=== PATIENT | female | born 1965 | race Caucasian/White ===

== ENCOUNTER 2021-07-19 00:15 | Inpatient (IN) | payer BC, OTHER ==
[~2021-07-19] VITALS: Ht 167.6 cm; Wt 87.7 kg
[2021-07-19] MEDS ORDERED: HYDROcodone/acetaminophen 10/325mg tab PO PRN (23:50)
[2021-07-19] MEDS ORDERED: HYDROmorphone inj. 0.5 MG/0.5 ML DISP.SYRIN IV PRN (23:50)
[2021-07-20 00:07] VITALS: BP 143/93
[2021-07-20] MEDS ORDERED: NO HOME MEDS (00:19)
[2021-07-20] MEDS: sodium chloride 0.45% 1,000 ML IV SCH ×3 (01:00→19:50)
[2021-07-20] MEDS ORDERED: vancomycin/NS 1 GM ADD-VANTAGE 250 ML IV SCH (01:00)
[2021-07-20] MEDS ORDERED: vancomycin/NS 1 GM ADD-VANTAGE 250 ML IV ONE (01:30)
[2021-07-20] MEDS: HYDROmorphone 1 mg/ml syringe IV PRN ×2 (01:30→23:08)
[2021-07-20] MEDS: CLINDAMYCIN/D5W 900mg/50ml 50 ML IV SCH ×3 (01:38→16:19)
[2021-07-20] MEDS: HYDROcodone/acetaminophen 10/325mg tab PO PRN ×2 (05:38→09:52)
--- NOTE | 2021-07-20 06:21 | NUR ---
Problems reprioritized. Patient report given, questions answered & plan of care reviewed with ISAIAS Mosher.
[2021-07-20 06:54] LABS: ALANINE AMINOTRANSFERASE 31 U/L (12-78); ALBUMIN 3.2 G/DL (3.4-5.0); ALBUMIN/GLOBULIN RATIO 0.9 (1.1-1.5); ALKALINE PHOSPHATASE 104 IU/L (46-116); ANION GAP 9 (8-16); ASPARTATE AMINO TRANSFERASE 18 U/L (10-37); BILIRUBIN,TOTAL 0.4 MG/DL (0.1-1.0); BLOOD UREA NITROGEN 16 MG/DL (7-18); BUN/CREATININE RATIO 18.4 (6.6-38.0); CALCIUM 8.6 MG/DL (8.5-10.1); CHLORIDE 103 MMOL/L (99-107); CREATININE 0.87 MG/DL (0.40-0.90); GLUCOSE 141 MG/DL (70-104); POTASSIUM 4.4 MMOL/L (3.5-5.1); SODIUM 137 MMOL/L (135-145); TOTAL CARBON DIOXIDE 25.4 MMOL/L (24-32); TOTAL PROTEIN 6.6 G/DL (6.4-8.2); eGFR 68 ML/MIN
[2021-07-20 07:24] VITALS: BP 131/78
[2021-07-20] MEDS: docusate sod 100mg capsule PO SCH ×2 (08:38→20:34)
[2021-07-20 11:00] VITALS: BP 125/74
[2021-07-20] MEDS: vancomycin/NS 1 GM ADD-VANTAGE 250 ML IV SCH (13:22)
--- NOTE | 2021-07-20 13:30 | NUR ---
Noted pt admitted for wound dehiscence s/p L knee replacement though limited information in EMR; pending physician documentation. Will reassess at later time for possible nutrition interventions. Addendum: 07/20/21 at [address] Amended: Links added.
--- NOTE | 2021-07-20 18:51 | NUR ---
gAVE REPORT TO RAQUEL ESPARZA
[2021-07-20 20:00] VITALS: BP 133/81
[2021-07-20] MEDS: lactobacillus rhamnosus 10,000 MMU CELLS/CAPSULE PO SCH (20:34)
[2021-07-21] VITALS: BP 128/83
[2021-07-21] MEDS: CLINDAMYCIN/D5W 900mg/50ml 50 ML IV SCH ×4 (00:44→23:35)
[2021-07-21] MEDS: vancomycin/NS 1 GM ADD-VANTAGE 250 ML IV SCH ×2 (00:56→13:51)
[2021-07-21] MEDS: sodium chloride 0.45% 1,000 ML IV SCH ×2 (05:50→16:33)
[2021-07-21 06:08] LABS: BASOPHILS # (AUTO) 0.1 X10'3 (0-0.2); BASOPHILS % (AUTO) 0.7 % (0-1); EOSINOPHILS # (AUTO) 0.3 X10'3 (0-0.9); EOSINOPHILS % (AUTO) 2.9 % (0-6); HEMATOCRIT 33.1 % (35.0-45.0); HEMOGLOBIN 11.3 g/dl (12.0-16.0); LYMPHOCYTES # (AUTO) 1.6 X10'3 (1.1-4.8); LYMPHOCYTES % (AUTO) 17.8 % (21-51); MEAN CORPUSCULAR HGB CONC 34.1 g/dL (33.0-36.5); MEAN PLATELET VOLUME 7.2 FL (7.4-10.4); MONOCYTES # (AUTO) 0.5 X10'3 (0-0.9); MONOCYTES % (AUTO) 5.9 % (2-12); NEUTROPHILS # (AUTO) 6.6 X10'3 (1.8-7.7); NEUTROPHILS % (AUTO) 72.7 % (42-75); PLATELET COUNT 288 X10'3 (140-440); RED CELL DISTRIBUTION WIDTH 13.1 % (11.5-14.5)
--- NOTE | 2021-07-21 06:23 | NUR ---
Patient in room [facility]. I have received report from Tamika chavez and had the opportunity to ask questions and assume patient care.
[2021-07-21 06:24] LABS: ALANINE AMINOTRANSFERASE 23 U/L (12-78); ALBUMIN 2.6 G/DL (3.4-5.0); ALBUMIN/GLOBULIN RATIO 0.9 (1.1-1.5); ALKALINE PHOSPHATASE 88 IU/L (46-116); ANION GAP 8 (8-16); ASPARTATE AMINO TRANSFERASE 15 U/L (10-37); BILIRUBIN,TOTAL 0.3 MG/DL (0.1-1.0); BLOOD UREA NITROGEN 17 MG/DL (7-18); BUN/CREATININE RATIO 20.7 (6.6-38.0); CHLORIDE 106 MMOL/L (99-107); CREATININE 0.82 MG/DL (0.40-0.90); GLUCOSE 110 MG/DL (70-104); POTASSIUM 4.2 MMOL/L (3.5-5.1); SODIUM 142 MMOL/L (135-145); TOTAL CARBON DIOXIDE 28.2 MMOL/L (24-32); TOTAL PROTEIN 5.6 G/DL (6.4-8.2); eGFR 73 ML/MIN
[2021-07-21 07:00] VITALS: BP 131/85
[2021-07-21] MEDS: docusate sod 100mg capsule PO SCH ×2 (08:45→20:17)
[2021-07-21] MEDS: lactobacillus rhamnosus 10,000 MMU CELLS/CAPSULE PO SCH ×2 (08:46→20:17)
[2021-07-21] MEDS: HYDROcodone/acetaminophen 10/325mg tab PO PRN ×2 (10:02→14:04)
[2021-07-21] MEDS ORDERED: sennosides/docusate sodium tablet PO ONE (10:23)
[2021-07-21 11:00] VITALS: BP 124/82
[2021-07-21] MEDS ORDERED: VANCOMYCIN LEVEL IV ONE (12:30)
--- NOTE | 2021-07-21 14:26 | NUR ---
pt did not want lunch because friend is bringing food to her
--- NOTE | 2021-07-21 18:18 | NUR ---
Problems reprioritized. Patient report given, questions answered & plan of care reviewed with Tamika ESPARZA.
[2021-07-21 19:44] VITALS: BP 129/79
[2021-07-21] MEDS: sennosides/docusate sodium tablet PO SCH (20:17)
[2021-07-21 23:58] VITALS: BP 123/75
[2021-07-22] VITALS: BP 130/82
[2021-07-22] MEDS: VANCOmycin 1250MG/NS 250ml Bag 250 ML IV SCH ×2 (01:12→13:56)
[2021-07-22] MEDS: sodium chloride 0.45% 1,000 ML IV SCH (01:50)
--- NOTE | 2021-07-22 06:26 | NUR ---
pATIENT REPORT GIVEN , QUESTIONS ANSWERED AND PLAN OF CARE REVIEWED WITH ELVI ESPARZA .
[2021-07-22 07:11] LABS: ALANINE AMINOTRANSFERASE 28 U/L (12-78); ALBUMIN 2.9 G/DL (3.4-5.0); ALBUMIN/GLOBULIN RATIO 0.9 (1.1-1.5); ALKALINE PHOSPHATASE 101 IU/L (46-116); ANION GAP 6 (8-16); ASPARTATE AMINO TRANSFERASE 20 U/L (10-37); BILIRUBIN,TOTAL 0.3 MG/DL (0.1-1.0); BLOOD UREA NITROGEN 12 MG/DL (7-18); BUN/CREATININE RATIO 15.4 (6.6-38.0); CALCIUM 8.4 MG/DL (8.5-10.1); CHLORIDE 107 MMOL/L (99-107); CREATININE 0.78 MG/DL (0.40-0.90); GLUCOSE 105 MG/DL (70-104); SODIUM 143 MMOL/L (135-145); TOTAL CARBON DIOXIDE 30.5 MMOL/L (24-32); eGFR 77 ML/MIN
[2021-07-22 07:25] LABS: BASOPHILS % (AUTO) 0.7 % (0-1); EOSINOPHILS # (AUTO) 0.3 X10'3 (0-0.9); EOSINOPHILS % (AUTO) 4.9 % (0-6); HEMATOCRIT 36.7 % (35.0-45.0); HEMOGLOBIN 12.5 g/dl (12.0-16.0); LYMPHOCYTES # (AUTO) 1.6 X10'3 (1.1-4.8); LYMPHOCYTES % (AUTO) 27.3 % (21-51); MEAN CORPUSCULAR HEMOGLOBIN 28.8 PG (27.0-31.0); MEAN CORPUSCULAR VOLUME 84.7 FL (78-98); MEAN PLATELET VOLUME 7.4 FL (7.4-10.4); MONOCYTES # (AUTO) 0.5 X10'3 (0-0.9); MONOCYTES % (AUTO) 8.9 % (2-12); NEUTROPHILS # (AUTO) 3.3 X10'3 (1.8-7.7); NEUTROPHILS % (AUTO) 58.2 % (42-75); PLATELET COUNT 338 X10'3 (140-440); RED BLOOD COUNT 4.33 X10'6 (4.20-5.60); RED CELL DISTRIBUTION WIDTH 13.3 % (11.5-14.5); WHITE BLOOD COUNT 5.8 X10'3 (4.5-11.0)
[2021-07-22] MEDS: docusate sod 100mg capsule PO SCH ×2 (07:39→20:12)
[2021-07-22] MEDS: lactobacillus rhamnosus 10,000 MMU CELLS/CAPSULE PO SCH ×2 (07:40→20:12)
[2021-07-22] MEDS: sennosides/docusate sodium tablet PO SCH ×2 (07:41→20:14)
[2021-07-22] MEDS: CLINDAMYCIN/D5W 900mg/50ml 50 ML IV SCH (07:47)
[2021-07-22 08:00] VITALS: BP 127/87
--- NOTE | 2021-07-22 09:34 | NUR ---
Charge nurse paging PICC RN at this time
[2021-07-22] MEDS: HYDROcodone/acetaminophen 10/325mg tab PO PRN (10:45)
[2021-07-22] MEDS: rifampin 300mg capsule PO SCH ×2 (10:52→20:13)
[2021-07-22 11:00] VITALS: BP 125/81
[2021-07-22] MEDS ORDERED: RIFA300C4 PO (12:21)
[2021-07-22] MEDS ORDERED: normal saline 500ml IV soln 1,000 ML IV SCH (13:30)
--- NOTE | 2021-07-22 14:17 | NUR ---
Hemovac DC'd by Jarod. Pt. tolerated fair. No s/sx bleeding noted but bandage applied. Called pharmacy to verify Rifampin available. Pharmacy will need to order r/t ammount of capsules- 80 plus. Tech stated isf order called in today they would be ready tomorrow. Attempted to speak with pharmacist to give verbal orders, but pharmacist unavaile. Agreed to call back at 1430.
--- NOTE | 2021-07-22 14:40 | NUR ---
Rifampin called into preferred pharmacy in [place]. They state they do not have enough capsules of antibiotic but will overnight order and that it will be available tomorrow. Spoke with [employer] technology coordinator and pharmacist Tunde.
--- NOTE | 2021-07-22 18:15 | NUR ---
Gave report to Tamika ESPARZA.
[2021-07-22 20:00] VITALS: BP 124/86
[2021-07-23 01:47] LABS: BASOPHILS # (AUTO) 0.1 X10'3 (0-0.2); BASOPHILS % (AUTO) 1.2 % (0-1); EOSINOPHILS # (AUTO) 0.3 X10'3 (0-0.9); EOSINOPHILS % (AUTO) 5.3 % (0-6); HEMATOCRIT 32.8 % (35.0-45.0); HEMOGLOBIN 11.4 g/dl (12.0-16.0); LYMPHOCYTES # (AUTO) 0.9 X10'3 (1.1-4.8); LYMPHOCYTES % (AUTO) 14.6 % (21-51); MEAN CORPUSCULAR HGB CONC 34.9 g/dL (33.0-36.5); MEAN PLATELET VOLUME 6.9 FL (7.4-10.4); MONOCYTES # (AUTO) 0.4 X10'3 (0-0.9); MONOCYTES % (AUTO) 7.3 % (2-12); NEUTROPHILS # (AUTO) 4.2 X10'3 (1.8-7.7); NEUTROPHILS % (AUTO) 71.6 % (42-75); PLATELET COUNT 280 X10'3 (140-440); RED BLOOD COUNT 3.95 X10'6 (4.20-5.60); RED CELL DISTRIBUTION WIDTH 13.1 % (11.5-14.5); WHITE BLOOD COUNT 5.9 X10'3 (4.5-11.0)
[2021-07-23 02:01] LABS: ALANINE AMINOTRANSFERASE 35 U/L (12-78); ALBUMIN 2.8 G/DL (3.4-5.0); ALKALINE PHOSPHATASE 103 IU/L (46-116); ANION GAP 7 (8-16); ASPARTATE AMINO TRANSFERASE 23 U/L (10-37); BILIRUBIN,TOTAL 0.9 MG/DL (0.1-1.0); BLOOD UREA NITROGEN 9 MG/DL (7-18); BUN/CREATININE RATIO 10.3 (6.6-38.0); CALCIUM 7.8 MG/DL (8.5-10.1); CHLORIDE 105 MMOL/L (99-107); CREATININE 0.87 MG/DL (0.40-0.90); GLUCOSE 116 MG/DL (70-104); POTASSIUM 3.7 MMOL/L (3.5-5.1); SODIUM 141 MMOL/L (135-145); TOTAL CARBON DIOXIDE 28.8 MMOL/L (24-32); TOTAL PROTEIN 5.6 G/DL (6.4-8.2); eGFR 68 ML/MIN
[2021-07-23] MEDS: VANCOmycin 1250MG/NS 250ml Bag 250 ML IV SCH ×2 (02:01→12:26)
[2021-07-23] MEDS: docusate sod 100mg capsule PO SCH (07:29)
[2021-07-23] MEDS: lactobacillus rhamnosus 10,000 MMU CELLS/CAPSULE PO SCH (07:29)
[2021-07-23] MEDS: sennosides/docusate sodium tablet PO SCH (07:29)
[2021-07-23 08:00] VITALS: BP 133/82
[2021-07-23] MEDS: rifampin 300mg capsule PO SCH (09:48)
[2021-07-23 10:00] VITALS: BP 135/86
--- NOTE | 2021-07-23 11:19 | NUR ---
called dr powers re: dc pt home. no answer, mailbox full.
[2021-07-23] MEDS ORDERED: SENN-283 PO (12:07)
[2021-07-23] MEDS ORDERED: HYDR-3972 PO (12:07)
[2021-07-23] MEDS ORDERED: VANCOMYCIN LEVEL IV ONE (12:30)
== END 2021-07-23 15:15 | disposition home or self-care (01) | DRG 560 ==
LOC: SUR 3N 00:15 → UNDOADMIN 20:57 → SUR 3N 20:57
PROVIDERS: ADMIT Orthopaedic Surgery; ATTEND Orthopaedic Surgery
PROC: 05HY33Z Insertion of Infusion Device into Upper Vein, Percutaneous Approach (ICD-10-PCS; principal; 2021-07-22)
DX: T84.54XA Infection and inflammatory reaction due to internal left knee prosthesis, initial encounter (principal); T81.31XA Disruption of external operation (surgical) wound, not elsewhere classified, initial encounter; Y83.1 Surgical operation with implant of artificial internal device as the cause of abnormal reaction of the patient, or of later complication, without mention of misadventure at the time of the procedure; Z87.442 Personal history of urinary calculi; Z88.2 Allergy status to sulfonamides; Y92.89 Other specified places as the place of occurrence of the external cause
CPT/HCPCS: 36415; 36573; 76937; 80053; 80202; 85025; 87081; 97110; 97116; 97161; 97530; G0378; J1170; J3370; J3490; J7040

== ENCOUNTER 2021-08-30 22:59 | Outpatient (CLI) | payer BC ==
[~2021-08-30 22:59] MED LIST: HYDR-3972 PO; NO HOME MEDS; RIFA300C4 PO; SENN-283 PO
[2021-08-30 23:59] LABS: BASOPHILS % (AUTO) 0.7 % (0-1); EOSINOPHILS # (AUTO) 0.2 X10'3 (0-0.9); EOSINOPHILS % (AUTO) 4.6 % (0-6); HEMATOCRIT 37.7 % (35.0-45.0); HEMOGLOBIN 12.5 g/dl (12.0-16.0); LYMPHOCYTES # (AUTO) 1.1 X10'3 (1.1-4.8); LYMPHOCYTES % (AUTO) 23.2 % (21-51); MEAN CORPUSCULAR HEMOGLOBIN 27.9 PG (27.0-31.0); MEAN CORPUSCULAR HGB CONC 33.2 g/dL (33.0-36.5); MEAN CORPUSCULAR VOLUME 84.1 FL (78-98); MEAN PLATELET VOLUME 7.8 FL (7.4-10.4); MONOCYTES # (AUTO) 0.4 X10'3 (0-0.9); MONOCYTES % (AUTO) 7.9 % (2-12); NEUTROPHILS # (AUTO) 2.9 X10'3 (1.8-7.7); NEUTROPHILS % (AUTO) 63.6 % (42-75); PLATELET COUNT 229 X10'3 (140-440); RED BLOOD COUNT 4.48 X10'6 (4.20-5.60); RED CELL DISTRIBUTION WIDTH 13.8 % (11.5-14.5); WHITE BLOOD COUNT 4.6 X10'3 (4.5-11.0)
[2021-08-31 00:05] LABS: ALBUMIN 3.8 G/DL (3.4-5.0); ANION GAP 14 (8-16); BLOOD UREA NITROGEN 13 MG/DL (7-18); C-REACTIVE PROTEIN 0.27 MG/DL (0.0-0.5); CALCIUM 8.9 MG/DL (8.5-10.1); CHLORIDE 106 MMOL/L (99-107); CREATININE 0.81 MG/DL (0.40-0.90); GLUCOSE 118 MG/DL (70-104); POTASSIUM 3.8 MMOL/L (3.5-5.1); SODIUM 141 MMOL/L (135-145); TOTAL CARBON DIOXIDE 21.1 MMOL/L (24-32); VANCOMYCIN,RANDOM 16.2 UG/ML; eGFR 74 ML/MIN
== END 2021-08-30 23:59 | disposition home or self-care (01) ==
LOC: LAB SPEC 22:59
DX: T84.54XA Infection and inflammatory reaction due to internal left knee prosthesis, initial encounter (principal); X58.XXXA Exposure to other specified factors, initial encounter; Y93.89 Activity, other specified; Y92.89 Other specified places as the place of occurrence of the external cause; Y99.8 Other external cause status
CPT/HCPCS: 36415; 80048; 80202; 85025; 85651; 86140